=== PATIENT | female | born 1950 | race Caucasian/White ===

== ENCOUNTER 2023-01-19 08:02 | Observation (INO) | payer OTHER ==
[2023-01-14 11:51] LABS: Absolute Lymphocytes (CBC) 2.5 K/uL (0.7-4.9); Hematocrit 36.5 % (36.0-45.0); Lymphocytes % 34.8 % (15.3-44.8); MCV 82.9 fL (80-100); MPV 7.5 fL (7.6-11.3)
[2023-01-14 12:02] LABS: Protime INR 0.91
[2023-01-14 12:05] LABS: Potassium 3.4 mEq/L (3.5-5.1)
--- NOTE | 2023-01-14 12:41 | RAD REPORT ---
EXAM DESCRIPTION: Ramiro Philip (2 Views)01/14/2023 11:27 am CLINICAL HISTORY: Preop for joint surgery COMPARISON: 2018 FINDINGS: Small calcification overlies anterior right chest. The lungs appear clear of acute infiltrate. The heart is normal size IMPRESSION: No acute abnormalities displayed
[2023-01-19] MEDS ORDERED: Ringers Lactate 1,000 ML IV ONE ×2 (08:28→12:06)
[2023-01-19] MEDS ORDERED: CLINDAMYCIN 600MG/D5W 50 ML IV ONE (08:29)
[2023-01-19] MEDS ORDERED: MIDAZOLAM HCL 2 MG/2 ML INJ ONE (09:26)
[2023-01-19] MEDS ORDERED: dexAMETHasone 10 MG/ML VIAL ONE ×2 (09:26→10:29)
[2023-01-19] MEDS ORDERED: EPINEPHRINE/PF 1 MG/ML AMP ONE (09:26)
[2023-01-19] MEDS ORDERED: LIDOCAINE 1% MPF 5 ML VIAL ONE (09:26)
[2023-01-19] MEDS ORDERED: FENTANYL CITR 100 MCG/2 ML ONE (09:26)
[2023-01-19] MEDS ORDERED: propofoL 200 MG/20 ML VIAL IV ONE (10:28)
[2023-01-19] MEDS ORDERED: LIDOCAINE 2% MPF 5 ML VIAL ONE (10:30)
[2023-01-19] MEDS ORDERED: NS 0.9% VIAL 10 ML ONE ×3 (10:30→12:30)
[2023-01-19] MEDS ORDERED: VECURONIUM 10 MG/VIAL IV ONE ×2 (10:30→12:31)
[2023-01-19] MEDS ORDERED: ONDANSETRON 4 MG/2 ML VIAL ONE (10:31)
[2023-01-19] MEDS ORDERED: SUCCINYLCHOLINE 20 MG/ML (10 ML) IV ONE (10:42)
--- NOTE | 2023-01-19 13:47 | P.BOP ---
Preoperative diagnosis: left shoulder osteoarthritis Postoperative diagnosis: same Primary procedure: left total shoulder arthroplasty Prototype Engineer: NONE,NONE Estimated blood loss: 50 cc Specimen: left humeral head Findings: see dictation Anesthesia: General Complications: None Implants: [employer] Allison 13 x 83 mm mini stem, 3 modular glenoid w/ TM post, 46 head Fluids & blood products: per anesthesia record Transferred to: Recovery Room Condition: Good
[2023-01-19] MEDS ORDERED: TRAMADOL HCL 50 MG TAB PO PRN (13:48)
[2023-01-19] MEDS ORDERED: ONDANSETRON 4 MG/2 ML VIAL IV PRN (13:48)
[2023-01-19] MEDS ORDERED: ACETAMINOPHEN 325 MG TABLET PO PRN (13:48)
[2023-01-19] MEDS ORDERED: DOCUSATE NA 100 MG CAP PO PRN (13:48)
--- OUTSIDE RECORDS SUMMARY | 2023-01-19 14:22 | XMS REPORT | Continuity of Care Document ---
:1950 Author Organization [facility] t Address [address] [place] [address] [address] [place] [address] Care Team Providers Name Role Phone Maria C Carr Primary Care Physician [phone] MARIA C NICHOLSON Attending Clinician Unavailable DENTON RICK Attending Clinician Unavailable [place] Rick MD Attending Clinician Doctor Unassigned, [place] Attending Clinician Unavailable Only, Adc Test Attending Clinician Unavailable Pob, [facility] Lab Main Attending Clinician Unavailable Satya Attending Clinician Unavailable Damaso Raza MD Attending Clinician Erica Dimas Attending Clinician ERICA DELUNA Attending Clinician Unavailable DAMASO RAZA Attending Clinician Unavailable DENTON RICK Admitting Clinician Unavailable [place] Rick MD Admitting Clinician Satya Admitting Clinician Unavailable Payers Payer Name Policy Type Policy Number Effective Date Expiration Date S vanessa [facility] [id number] 2021 [facility] 00:00:00 PPO [facility] [id number] (MEDICARE REPLACEMENT/[place] GE - PPO) [facility] [id number] 2013 MEDICARE SUPPLEMENT 00:00:00 [place]IC[place]: [id number] 2013 [id number] 00:00:00 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 Unive rs humerus humerus 1-19 [place] left[place] with left, with 00 Me dical routine routine Branch healing, healing, subsequent subsequent encounter encounter Knee Knee Disease Active 2014-09 Univers fracture, fracture, 109 ity of right right 00:00: [place] 00 Medical Branch Right Right Disease Active 2014-09 Univers tibial tibial 07 ity of fracture fracture 00:00: [place] 00 Medical Branch Bilateral Bilateral Disease Active 2014-09 Uni vers shoulder shoulder 1-04 ity of pain pain 00:00: [place] 00 Medical Branch Left Left Disease Active 2014-09 Univers shoulder shoulder 0-08 ity of pain pain 00:00: [place] 00 Medical Branch Allergies, Adverse Reactions, Alerts Allergy Allergy Status Severity Reaction(s) Onset Inactive Treating Comm ents Source Name Type Date Date Clinician Penicill Propensi Active Rash 2014-09 Univer s ins ty to 0-08 ity of adverse 00:00: [place] reaction 00 Medical s Branch Sulfa Propensi Active Nausea 2014-09 Univers (Sulfona ty to and/or 0-08 ity of mide adverse Vomiting 00:00: [place] Antibiot reaction 00 Medica l ics) s Branch PENICILL Drug Active Rash 2014-09 Univers INS Class 0-08 ity of 00:00: [place] 00 Medical Branch SULFA Drug Active N/V 2014-09 Univers (SULFONA Class 0-08 ity of MIDE 00:00: [place] ANTIBIOT 00 Medical ICS) Branch Social History Social Habit Start Date Stop Date Quantity Comments Source History SDOH University o f Alcohol Frequency [place] M edical [facility] History SDDC University o f Alcohol Std [place] [facility] Drinks Branch History SDDC University o f Alcohol Binge [place] [facility] al Branch Exposure to Not sure University of SARS-CoV-2 [place] Medical (event) Branch Alcohol intake 2021-12-07 2021-12-07 0 /d University of 00:00:00 00:00:00 [facility] Alcohol Comment 2015-07-28 2015-07-28 once or twice Univer sity of 00:00:00 00:00:00 per year, glass [place] Med ical of wine Branch Tobacco use and 2015-06-26 2015-06-26 Never used Universit y of exposure 00:00:00 00:00:00 [facility] Sex [birth year] Universit y of 00:00:00 00:00:00 [facility] Smoking Status Start Date Stop Date Source Never smoker [facility] Medications Ordered Filled Start Stop Current Ordering Indication Dosage Frequency Signature Comments Components Source Medication Medication Date Date Medication? Clinician (SIG) Name Name neomycin-po 0 Yes PRN, Univer s lymyxin-dex 12-09 Starting ity of amethasone 18:57: on Tue [place] (MAXITROL) 00 12/09/21 at [facility] ica 3.5 1357, Branch mg/g-10,000 Until unit/g-0.1 Discontinu % ed, ophthalmic Routine, ointment Intra-op neomycin-po 2021- No PRN, Unive rs lymyxin-dex 12-09 Starting ity of amethasone 18:57: 21:29 [place] ([place]OL[place] 00 :41 12/09/21 at [facility] ica 3. 1357, Branch mg/g-10,000 Until Tue unit/g-0.1 12/09/21 at % 1629, ophthalmic Routine, ointment Intra-op sodium 0 Yes PRN, Univers chloride 12-09 Starting ity of (NS) 18:55: on Tue [place] injection 00 12/09/21 at [facility] 1355, Branch Until Discontinu ed, Routine, Intra-op sodium 2021-0 2021- No PRN, Univers chloride 12-09 Starting ity of (NS) 18:55: 21:29 on Tue [place] injection 00 :41 12/09/21 at [facility] 1355, Branch Until Tue12/09/21 at 1629, Routine, Intra-op dexamethaso 0 Yes PRN, Univer s ne 12-09 Starting ity of (DECADRON 18:53: on Tue [place] PHOSPHATE) 00 12/09/21 at [facility] injection 1353, Branch Until Discontinu ed, Routine, Intra-op ceFAZolin 0 Yes PRN, Univers (ANCEF) 12-09 Starting ity of injection 18:53: on Tue [place] 00 12/09/21 at [facility] 1353, Branch Until Discontinu ed, ELLIS, Intra-op dexamethaso 2021- No PRN, Unive rs ne 12-09 Starting ity of (DECADRON 18:53: 21:29 on Tue [place] PHOSPHATE) 00 :41 12/09/21 at [facility] ical injection 1353, Branch Until Tue12/09/21 at 1629, Routine, Intra-op ceFAZolin 2021- No PRN, Univers (ANCEF) 12-09 Starting ity of injection 18:53: 21:29 on Tue [place] 00 :41 12/09/21 at Medical 1353, Branch Until Tue12/09/21 at 1629, ELLIS, Intra-op carbachoL Yes PRN, Univers (MIOSTAT) 12-09 Starting ity of 0.01 % 18:52: on Tue intraocular 00 12/09/21 at [place] injection 1352, Branch Until Discontinu ed, Routine, Intra-op carbachoL 2021- No PRN, Univers (MIOSTAT) 12-09 Starting ity o f 0.01 % 18:52: 21:29 on Tue intraocular 00 :41 12/09/21 at [place] injection 1352, Branch Until Tue12/09/21 at 1629, Routine, Intra-op EPINEPHrine Yes PRN, Univer s 1:1,000 (1 12-09 Starting ity o f mg/mL) 18:41: on Tue (ADRENALIN) 00 12/09/21 at [place] injection 1341, Branch Until Discontinu ed, Routine, Intra-op DUOVISC Yes PRN, Univers (DUOVISC 12-09 Starting ity of VISCO 18:41: on Tue ELASTIC) 3 00 12/09/21 at [facility] ical %-4 %(0.5 1341, Branch mL) 1 % Until (0.55 mL) Discontinu intraocular ed, injection Routine, Intra-op balanced Yes PRN, Univers salt irrig 12-09 Starting ity o f soln comb1 18:41: on Tue (BSS PLUS) 00 12/09/21 at [facility] ical ophthalmic 1341, Branch solution Until 500 mL bag Discontinu ed, Routine, Intra-op EPINEPHrine 2021- No PRN, Unive rs 1:1,000 (1 12-09 Starting ity of mg/mL) 18:41: 21:29 on Tue [place] (ADRENALIN) 00 :41 12/09/21 at Ny dical injection 1341, Branch Until Tue12/09/21 at 1629, Routine, Intra-op DUOVISC 2021- No PRN, Univers (DUOVISC 12-09 Starting ity of VISCO 18:41: 21:29 on Tue [place] ELASTIC) 3 00 :41 12/09/21 at [facility] ical %-4 %(0.5 1341, Branch mL) 1 % Until Tue (0.55 mL) 12/09/21 at intraocular 1629, injection Routine, Intra-op balanced 2021- No PRN, Univers salt irrig 12-09 Starting ity of soln comb1 18:41: 21:29 [place] Tue [place] (BSS PLUS) 00 :41 12/09/21 at [facility] ical ophthalmic 1341, Branch solution Until Tue 500 mL bag 12/09/21 at 1629, Routine, Intra-op water for Yes PRN, Univers irrigation 12-09 Starting ity o f irrigation 18:37: on Tue solution 00 12/09/21 at Medic al 1337, Branch Until Discontinu ed, Routine, Intra-op water for 2021- No PRN, Univers irrigation 12-09 Starting ity of irrigation 18:37: 21:29 on Tue [place] solution 00 :41 12/09/21 at Medic al 1337, Branch Until Tue12/09/21 at 1629, Routine, Intra-op Hyaluronida Yes PRN, Univer s se, Human 12-09 Starting ity of Recomb. 18:35: on Tue (HYLENEX) 00 12/09/21 at [facility] injection 1335, Branch Until Discontinu ed, Routine, Intra-op eye block Yes PRN, Univers syringe 11 12-09 Starting ity o f mL 18:35: on Tue [place] 00 12/09/21 at Medical 1335, Branch Until Discontinu ed, Intra-op Hyaluronida 2021- No PRN, Unive rs se, Human 3-23 03-23 Starting ity o f Recomb. 18:35: 21:29 on Tue (HYLENEX) 00 :41 12/09/21 at [facility] [place] injection 1335, Branch Until Tue12/09/21 at 1629, Routine, Intra-op eye block 2021- No PRN, Univers syringe 11 12-09 Starting ity of mL 18:35: 21:29 on Tue [place] 00 :41 12/09/21 at [facility] 1335, Branch Until Tue12/09/21 at 1629, Intra-op cyclopent 2021- No .5mL 0.5 mL, Univ ers 1%-tropic 12-09 Left Eye, ity of 1%-phenyl 16:30: 16:37 ONCE, 1 [place] 2.5%-ketor 00 :00 dose, On Medic al 0.5% Tue Branch (MYDRIATIC 12/09/21 at #5) 1130, ophthalmic Routine, solution DSU Pre-op syringe 0.5 mL lactated 2021- No 1000mL at 42 [facility] rs ringers IV 12-09 mL/hr, ity of infusion 16:30: 16:37 1,000 mL, Shahram as 1,000 mL 00 :00 IV Medical Infusion, Branch ONCE, 1 dose, On Tue12/09/21 at 1130, Routine, DSU Pre-op cyclopent 2021- No .5mL 0.5 mL, Univ ers 1%-tropic 12-09 Left Eye, ity of 1%-phenyl 16:30: 16:37 ONCE, 1 [place] 2.5%-ketor 00 :00 dose, On Medic al 0.5% Tue Branch (MYDRIATIC 12/09/21 at #5) 1130, ophthalmic Routine, solution DSU Pre-op syringe 0.5 mL lactated 2021- No 1000mL at 42 [facility] rs ringers IV 12-09 mL/hr, ity of infusion 16:30: 16:37 1,000 mL, Shahram as 1,000 mL 00 :00 IV Medical Infusion, Branch ONCE, 1 dose, On Tue12/09/21 at 1130, Routine, DSU Pre-op NAPROXEN Yes Take by Univer s SODIUM 3- mouth. ity of (ALEVE 14:29: [place] ORAL) 39 Medical Branch letrozole Yes 2.5mg Take 2.5 Uni vers 2.5 mg 3-23 mg by ity of tablet 14:29: mouth [place] 39 daily Medical Branch losartan 0 Yes 100mg Take 100 Univ ers 100 mg 3-23 mg by ity of tablet 14:29: mouth [place] 39 daily. Medical Branch ergocalcife Yes Take by Uni vers rol, 3 mouth. ity of vitamin D2, 14:29: [place] (VITAMIN D 39 Medical ORAL) Branch Cholecalcif Yes Take by Uni vers sam, 12-09 mouth. ity of Vitamin D3, 14:29: [place] (VITAMIN 39 Medical D3) [address] [place] (1,000 unit) capsule vitamin Yes 1000ug Take 1,000 Un aislinn B-12 3-23 mcg by ity of (VITAMIN 14:29: mouth [place] B-12) 1,000 39 daily. Medica l mcg tablet Branch coenzyme Yes 100mg Take 100 Univ ers Q10 (CO 3-23 mg by ity of Q-10) 100 14:29: mouth. [place] mg softgel [address] [place] [address] Branch vit C/vit E Yes Take by Uni vers ac/lut/john 12-09 mouth. ity of er/zinc 14:29: [place] (PRESERVISI 39 Medical ON LUTEIN Branch ORAL) calcium Yes Take by Univers carbonate/v 12-09 mouth. ity of itamin D2 14:29: [place] (CALCIUM-60 39 Medical 0-D ORAL) Branch VITAMIN B Yes Take by Unive rs COMPLEX - mouth. ity of ORAL 14:29: [address] Branch MAGNESIUM Yes 400mg Take 400 Uni vers ORAL 3-23 mg by ity of 14:29: mouth. [address] Branch krill-om-3- Yes Take by Uni vers dha-epa-marzena 12-09 mouth. ity of spho-ast 14:29: [place] (MEGARED 39 Medical OMEGA-3 Branch KRILL OIL) 350-90-24-5 0 mg Cap Biotin 5 mg Yes Take by Uni vers Tab 3 mouth. ity of 14:29: [place] [address] Medical Branch NAPROXEN Yes Take by Univer s SODIUM 12-09 mouth. ity of (ALEVE 14:29: [place] ORAL) 39 Medical Branch letrozole Yes 2.5mg Take 2.5 Uni vers 2.5 mg 3-23 mg by ity of tablet 14:29: mouth [place] 39 daily Medical Branch losartan Yes 100mg Take 100 Univ ers 100 mg 3-23 mg by ity of tablet 14:29: mouth [place] 39 daily. Medical Branch ergocalcife Yes Take by Uni vers rol, 12-09 mouth. ity of vitamin D2, 14:29: [place] (VITAMIN D 39 Medical ORAL) Branch Cholecalcif Yes Take by Uni vers sam, 12-09 mouth. ity of Vitamin D3, 14:29: [place] (VITAMIN [address] [place] [address] D3) [address] [place] (1,000 unit) capsule vitamin Yes 1000ug Take 1,000 Un aislinn B-12 3-23 mcg by ity of (VITAMIN 14:29: mouth [place] B-12) 1,000 39 daily. Medica l mcg tablet Branch coenzyme Yes 100mg Take 100 Univ ers Q10 (CO 3-23 mg by ity of Q-10) 100 14:29: mouth. [place] mg softgel [address] [place] [address] Branch vit C/vit E Yes Take by Uni vers ac/lut/john 12-09 mouth. ity of er/zinc 14:29: [place] (PRESERVISI 39 Medical ON LUTEIN Branch ORAL) calcium Yes Take by Univers carbonate/v 12-09 mouth. ity of itamin D2 14:29: [place] (CALCIUM-60 Medical 0-D ORAL) Branch VITAMIN B Yes Take by Unive rs COMPLEX 12-09 mouth. ity of ORAL 14:29: [address] Branch MAGNESIUM Yes 400mg Take 400 Uni vers ORAL 3-23 mg by ity of 14:29: mouth. [address] Branch krill-om-3- Yes Take by Uni vers dha-epa-marzena 12-09 mouth. ity of spho-ast 14:29: [place] (MEGARED 39 Medical OMEGA-3 Branch KRILL OIL) 350-90-24-5 0 mg Cap Biotin 5 mg Yes Take by Uni vers Tab 12-09 mouth. ity of 14:29: [place] [address] Medical Branch neomycin-po Yes PRN, [facility] lymyxin-dex 11-11 Starting ity of amethasone 19:17: on Wed [place] (MAXITROL) 00 11/11/21 at Med ical 3.5 1317, Branch mg/g-10,000 Until unit/g-0.1 Discontinu % ed, ophthalmic Routine, ointment Intra-op DUOVISC Yes PRN, Univers (DUOVISC 11-11 Starting ity of VISCO 19:17: on Tue [place] ELASTIC) 3 00 11/11/21 at Med ical %-4 %(0.5 1317, Branch mL) 1 % Until (0.55 mL) Discontinu intraocular ed, injection Routine, Intra-op dexamethaso Yes [facility]N, [facility] Starting ity of (DECADRON 19:17: on Tue [place] PHOSPHATE) 00 11/11/21 at Med ical injection 1317, Branch Until Discontinu ed, Routine, Intra-op neomycin-po 2021- No PRN, [facility] lymyxin-dex 11-11 Starting ity of amethasone 19:17: 22:11 on Tue [place] (MAXITROL) 00 :13 11/11/21 at Med ical 3.5 1317, Branch mg/g-10,000 Until Tue unit/g-0.1 11/11/21 at % 1611, ophthalmic Routine, ointment Intra-op DUOVISC 2021- No PRN, Univers (DUOVISC 11-11 Starting ity of VISCO 19:17: 22:11 on Tue [place] ELASTIC) 3 00 :13 11/11/21 at Med ical %-4 %(0.5 1317, Branch mL) 1 % Until Wed (0.55 mL) 11/11/21 at intraocular 1611, injection Routine, Intra-op dexamethaso 2021- No PRN, Unive rs ne 11-11 Starting ity of (DECADRON 19:17: 22:11 on Tue [place] PHOSPHATE) 00 :13 11/11/21 at [facility] ical injection 1317, Branch Until Tue11/11/21 at 1611, Routine, Intra-op ceFAZolin Yes PRN, Univers (ANCEF) 11-11 Starting ity of injection 19:16: on Tue 00 11/11/21 at [facility] 1316, Branch Until Discontinu ed, ELLIS, Intra-op carbachoL Yes PRN, Univers (MIOSTAT) 11-11 Starting ity of 0.01 % 19:16: on Tue intraocular 00 11/11/21 at [place] injection 1316, Branch Until Discontinu ed, Routine, Intra-op ceFAZolin 2021- No PRN, Univers (ANCEF) 11-11 Starting ity of injection 19:16: 22:11 on Tue 00 :13 11/11/21 at [facility] 1316, Branch Until Tue11/11/21 at 1611, ELLIS, Intra-op carbachoL 2021- No PRN, Univers (MIOSTAT) 11-11 Starting ity o f 0.01 % 19:16: 22:11 on Tue [place] intraocular 00 :13 11/11/21 at Ny dical injection 1316, Branch Until Tue11/11/21 at 1611, Routine, Intra-op sodium Yes PRN, Univers chloride 11-11 Starting ity of (NS) 19:15: on Tue [place] injection 00 11/11/21 at [facility] 1315, Branch Until Discontinu ed, Routine, Intra-op sodium 2021- No PRN, Univers chloride 11-11 Starting ity of (NS) 19:15: 22:11 on Tue [place] injection 00 :13 11/11/21 at [facility] 1315, Branch Until Tue11/11/21 at 1611, Routine, Intra-op water for Yes PRN, Univers irrigation 11-11 Starting ity o f irrigation 19:09: on Tue [place] solution 00 11/11/21 at Medic al 1309, Branch Until Discontinu ed, Routine, Intra-op water for 2021- No PRN, Univers irrigation 11-11 Starting ity of irrigation 19:09: 22:11 [place] Tue [place] solution 00 :13 11/11/21 at [facility] 1309, Branch Until Tue11/11/21 at 1611, Routine, Intra-op Hyaluronida Yes PRN, Univer s se, Human 11-11 Starting ity of Recomb. 19:05: on Tue [place] (HYLENEX) 00 11/11/21 at [facility] injection 1305, Branch Until Discontinu ed, Routine, Intra-op Hyaluronida 2021- No PRN, Unive rs se, Human 11-11 Starting ity o f Recomb. 19:05: 22:11 on Tue [place] (HYLENEX) 00 :13 11/11/21 at [facility] injection 1305, Branch Until Tue11/11/21 at 1611, Routine, Intra-op eye block Yes PRN, Univers syringe 11 11-11 Starting ity o f mL 19:03: on Tue [place] 11/11/21 at [facility] 1303, Branch Until Discontinu ed, Intra-op eye block 2021- No PRN, Univers syringe 11 11-11 Starting ity of mL 19:03: 22:11 on Tue [place] 00 :13 11/11/21 at [facility] 1303, Branch Until Tue11/11/21 at 1611, Intra-op EPINEPHrine Yes PRN, Univer s 1:1,000 (1 11-11 Starting ity o f mg/mL) 19:02: on Tue [place] (ADRENALIN) 11/11/21 at Ny dical injection 1302, Branch Until Discontinu ed, Routine, Intra-op balanced Yes PRN, Univers salt irrig 11-11 Starting ity o f soln comb1 19:02: on Tue [place] (BSS PLUS) 11/11/21 at [facility] ical ophthalmic 1302, Branch solution Until 500 mL bag Discontinu ed, Routine, Intra-op EPINEPHrine 2021- No PRN, Unive rs 1:1,000 (1 11-11 Starting ity of mg/mL) 19:02: 22:11 on Tue [place] (ADRENALIN) 00 :13 11/11/21 at Ny dical injection 1302, Branch Until Tue11/11/21 at 1611, Routine, Intra-op balanced 2021- No PRN, Univers salt irrig 11-11 Starting ity of soln comb1 19:02: 22:11 on Tue [place] (BSS PLUS) 00 :13 11/11/21 at [facility] ica ophthalmic 1302, Branch solution Until Tue 500 mL bag 11/11/21 at 1611, Routine, Intra-op cyclopent 2021- No .5mL 0.5 mL, Univ ers 1%-tropic 11-11 Right Eye, ity of 1%-phenyl 16:30: 16:35 ONCE, 1 [place] 2.5%-ketor 00 :00 dose, On Medic al 0.5% Wed Branch (MYDRIATIC 11/11/21 at #5) 1030, ophthalmic Routine, solution DSU Pre-op syringe 0.5 mL lactated 2021- No 1000mL at 42 Unive rs ringers IV 11-11 mL/hr, ity of infusion 16:30: 16:39 1,000 mL, Shahram as 1,000 mL 00 :00 IV Medical Infusion, Branch ONCE, 1 dose, On Tue11/11/21 at 1030, Routine, DSU Pre-op cyclopent 2021- No .5mL 0.5 mL, Univ ers 1%-tropic 11-11 Right Eye, ity of 1%-phenyl 16:30: 16:35 ONCE, 1 [place] 2.5%-ketor 00 :00 dose, On Medic al 0.5% Tue Branch (MYDRIATIC 11/11/21 at #5) 1030, ophthalmic Routine, solution DSU Pre-op syringe 0.5 mL lactated 2021- No 1000mL at 42 Unive rs ringers IV 11-11 mL/hr, ity of infusion 16:30: 16:39 1,000 mL, Shahrma as 1,000 mL 00 :00 IV Medical Infusion, Branch ONCE, 1 dose, On Tue11/11/21 at 1030, Routine, DSU Pre-op NAPROXEN Yes Take by Univer s SODIUM 2-23 mouth. ity of (ALEVE 14:06: [place] ORAL) 07 Medical Branch NAPROXEN Yes Take by Univer s SODIUM 2-23 mouth. ity of (ALEVE 14:06: [place] ORAL) Medical Branch NAPROXEN Yes Take by Univer s SODIUM 2-23 mouth. ity of (ALEVE 14:06: [place] ORAL) 07 Medical Branch NAPROXEN Yes Take by Univer s SODIUM 2-23 mouth. ity of (ALEVE 14:06: [place] ORAL) 07 Medical Branch NAPROXEN Yes Take by Univer s SODIUM 3-28 mouth. ity of (ALEVE 08:51: [place] ORAL) 54 Medical Branch NAPROXEN Yes Take by Univer s SODIUM 3-28 mouth. ity of (ALEVE 08:51: [place] ORAL) 54 Medical Branch NAPROXEN Yes Take by Univer s SODIUM 3-28 mouth. ity of (ALEVE 08:51: [place] ORAL) 54 Medical Branch NAPROXEN Yes Take by Univer s SODIUM 3-28 mouth. ity of (ALEVE 08:51: [place] ORAL) 54 Medical Branch atorvastati Yes Univer s n 40 mg 2-13 ity of tablet 00:00: Medical Branch atorvastati 0 Yes Univer s n 40 mg 2-13 ity of tablet 00:00: Medical Branch atorvastati 0 Yes Univer s n 40 mg 2-13 ity of tablet 00:00: Medical Branch atorvastati 2017-0 Yes Univer s n 40 mg 2-13 ity of tablet 00:00: Medical Branch atorvastati 0 Yes Univer s n 40 mg 2-13 ity of tablet 00:00: Medical Branch atorvastati 0 Yes Univer s n 40 mg 2-13 ity of tablet 00:00: Medical Branch atorvastati 0 Yes Univer s n 40 mg 2-13 ity of tablet 00:00: Medical Branch atorvastati 0 Yes Univer s n 40 mg 2-13 ity of tablet 00:00: Medical Branch atorvastati 2017-0 Yes Univer s n 40 mg 2-13 ity of tablet 00:00: [place] 00 Medical Branch atorvastati 2017-0 Yes Univer s n 40 mg 2-13 ity of tablet 00:00: [place] 00 Medical Branch acetaminoph 2014-09 Yes 1{tbl} Take 1 Tab Univers en-codeine 1-10 by mouth ity o f (TYLENOL 00:00: every 4 [place] #3) 300-30 00 (four) Medical mg tablet hours as Branch needed for Pain (scale 4-6) or Pain (scale 7-10). acetaminoph 2014-09 Yes 1{tbl} Take 1 Tab Univers en-codeine 1-10 by mouth ity o f (TYLENOL 00:00: every 4 [place] #3) 300-30 00 (four) Medical mg tablet hours as Branch needed for Pain (scale 4-6) or Pain (scale 7-10). acetaminoph 2014-09 Yes 1{tbl} Take 1 Tab Univers en-codeine 1-10 by mouth ity o f (TYLENOL 00:00: every 4 [place] #3) 300-30 00 (four) Medical mg tablet hours as Branch needed for Pain (scale 4-6) or Pain (scale 7-10). acetaminoph 2014-09 Yes 1{tbl} Take 1 Tab Univers en-codeine 1-10 by mouth ity o f (TYLENOL 00:00: every 4 [place] #3) 300-30 00 (four) Medical mg tablet hours as Branch needed for Pain (scale 4-6) or Pain (scale 7-10). acetaminoph 2014-09 Yes 1{tbl} Take 1 Tab Univers en-codeine 1-10 by mouth ity o f (TYLENOL 00:00: every 4 [place] #3) 300-30 00 (four) Medical mg tablet hours as Branch needed for Pain (scale 4-6) or Pain (scale 7-10). acetaminoph 2014-09 Yes 1{tbl} Take 1 Tab Univers en-codeine 1-10 by mouth ity o f (TYLENOL 00:00: every 4 [place] #3) 300-30 00 (four) Medical mg tablet hours as Branch needed for Pain (scale 4-6) or Pain (scale 7-10). acetaminoph 2014-09 Yes 1{tbl} Take 1 Tab Univers en-codeine 1-10 by mouth ity o f (TYLENOL 00:00: every 4 [place] #3) 300-30 00 (four) Medical mg tablet hours as Branch needed for Pain (scale 4-6) or Pain (scale 7-10). acetaminoph 2014-09 Yes 1{tbl} Take 1 Tab Univers en-codeine 1-10 by mouth ity o f (TYLENOL 00:00: every 4 [place] #3) 300-30 00 (four) Medical mg tablet hours as Branch needed for Pain (scale 4-6) or Pain (scale 7-10). acetaminoph 2014-09 Yes 1{tbl} Take 1 Tab Univers en-codeine 1-10 by mouth ity o f (TYLENOL 00:00: every 4 [place] #3) 300-30 00 (four) Medical mg tablet hours as Branch needed for Pain (scale 4-6) or Pain (scale 7-10). acetaminoph 2014-09 Yes 1{tbl} Take 1 Tab Univers en-codeine 1-10 by mouth ity o f (TYLENOL 00:00: every 4 [place] #3) 300-30 00 (four) Medical mg tablet hours as Branch needed for Pain (scale 4-6) or Pain (scale 7-10). metFORMIN Yes Univers (GLUCOPHAGE 9-23 ity of ) 500 mg 00:00: [place] tablet 00 Medical Branch levothyroxi Yes [place] ne 06-11 ity of (SYNTHROID) 00:00: [place] 75 mcg 00 Medical tablet Branch metFORMIN Yes Univers (GLUCOPHAGE 9-23 ity of ) 500 mg 00:00: [place] tablet 00 Medical Branch levothyroxi Yes Univer s ne -23 ity of (SYNTHROID) 00:00: [place] 75 mcg 00 Medical tablet Branch metFORMIN Yes Univers (GLUCOPHAGE 9-23 ity of ) 500 mg 00:00: [place] tablet 00 Medical Branch levothyroxi Yes [place] ne - ity of (SYNTHROID) 00:00: [place] 75 mcg 00 Medical tablet Branch metFORMIN Yes Univers (GLUCOPHAGE 9-23 ity of ) 500 mg 00:00: [place] tablet 00 Medical Branch levothyroxi Yes [place] al[place] ne 9-23 ity of (SYNTHROID) 00:00: [place] 75 mcg 00 Medical tablet Branch metFORMIN Yes Univers (GLUCOPHAGE 9-23 ity of ) 500 mg 00:00: [place] tablet 00 Medical Branch levothyroxi Yes [place] ne 9-23 ity of (SYNTHROID) 00:00: [place] 75 mcg 00 Medical tablet Branch metFORMIN Yes Univers (GLUCOPHAGE 9-23 ity of ) 500 mg 00:00: [place] tablet 00 Medical Branch levothyroxi Yes [place] ne 9-23 ity of (SYNTHROID) 00:00: [place] 75 mcg 00 Medical tablet Branch metFORMIN Yes Univers (GLUCOPHAGE 9-23 ity of ) 500 mg 00:00: [place] tablet 00 Medical Branch levothyroxi Yes [place] ne 9- ity of (SYNTHROID) 00:00: [place] 75 mcg 00 Medical tablet Branch metFORMIN Yes Univers (GLUCOPHAGE 9-23 ity of ) 500 mg 00:00: [place] tablet 00 Medical Branch levothyroxi Yes [place] ne - ity of (SYNTHROID) 00:00: [place] 75 mcg 00 Medical tablet Branch metFORMIN Yes Univers (GLUCOPHAGE 9-23 ity of ) 500 mg 00:00: [place] tablet 00 Medical Branch levothyroxi Yes [place] al[place] ne 9-23 ity of (SYNTHROID) 00:00: [place] 75 mcg 00 Medical tablet Branch metFORMIN Yes Univers (GLUCOPHAGE 9-23 ity of ) 500 mg 00:00: [place] tablet 00 Medical Branch levothyroxi Yes Marine alvarez ne 9-23 ity of (SYNTHROID) 00:00: [place] 75 mcg 00 Medical tablet Branch losartan-hy Yes Marine alvarez drochloroth 7-23 ity of iazide 00:00: [place] (HYZAAR) 00 Medical 100-12.5 mg Branch per tablet losartan-hy Yes Marine alvarez drochloroth 7-23 ity of iazide 00:00: [place] (HYZAAR) 00 Medical 100-12.5 mg Branch per tablet losartan-hy Yes Marine alvarez drochloroth 7-23 ity of iazide 00:00: [place] (HYZAAR) 00 Medical 100-12.5 mg Branch per tablet losartan-hy Yes Univer s drochloroth 7-23 ity of iazide 00:00: [place] (HYZAAR) 00 Medical 100-12.5 mg Branch per tablet losartan-hy Yes Univer s drochloroth 7-23 ity of iazide 00:00: [place] (HYZAAR) 00 Medical 100-12.5 mg Branch per tablet losartan-hy Yes Univer s drochloroth 7-23 ity of iazide 00:00: [place] (HYZAAR) 00 Medical 100-12.5 mg Branch per tablet losartan-hy Yes Univer s drochloroth 7-23 ity of iazide 00:00: [place] (HYZAAR) 00 Medical 100-12.5 mg Branch per tablet losartan-hy Yes Univer s drochloroth 7-23 ity of iazide 00:00: [place] (HYZAAR) 00 Medical 100-12.5 mg Branch per tablet losartan-hy Yes Univer s drochloroth 7-23 ity of iazide 00:00: [place] (HYZAAR) 00 Medical 100-12.5 mg Branch per tablet losartan-hy Yes Univer s drochloroth 7-23 ity of iazide 00:00: [place] (HYZAAR) 00 Medical 100-12.5 mg Branch per tablet Immunizations Ordered Filled Immunization Date Status Comments [facility] e Immunization Name Name SARS-COV-2 COVID-19 2021-08-06 Completed Unive rsity of MODERNA VACCINE 00:00:00 [facility] ical Branch SARS-COV-2 COVID-19 2021-08-06 Completed Unive rsity of MODERNA VACCINE 00:00:00 [facility] ical Branch Vital Signs Vital Name Observation Time Observation Value Comments Source Heart rate 2021-12-09 19:21:00 75 /min [facility] Respiratory rate 2021-12-09 19:21:00 14 /min [facility] O[facility] saturation in 2021-12-09 19:21:00 99 /min [facility] Arterial blood by [facility] Pulse oximetry Branch Systolic blood 2021-12-09 19:20:00 165 mm[Hg] Univer sity of pressure [place] [facility] Diastolic blood 2021-12-09 19:20:00 73 mm[Hg] Unive rsity of pressure [place] [facility] Body temperature 2021-12-09 19:04:00 36.78 Pham Univ ersity of [place] [facility] Body height 2021-11-25 16:52:00 162.6 cm [facility]i [facility] [place] [facility] Body weight 2021-11-25 16:52:00 86.4 kg [facility] [place] [facility] BMI 2021-11-25 16:52:00 32.68 kg/m2 [facility] [place] [facility] Systolic blood 2021-12-09 16:25:00 167 mm[Hg] Univer sity of pressure [place] [facility] Diastolic blood 2021-12-09 16:25:00 69 mm[Hg] Unive rsity of pressure [facility] Heart rate 2021-12-09 16:25:00 73 /min [facility] [place] [facility] Body temperature 2021-12-09 16:25:00 36.78 Pham Univ ersity of [place] [facility] Respiratory rate 2021-12-09 16:25:00 15 /min Univ ersity of [place] [facility] Oxygen saturation in 2021-12-09 16:25:00 100 /min University of Arterial blood by [place] [employer] [facility] Pulse oximetry Branch Body height 2021-11-25 16:52:00 162.6 cm Universi [facility] [place] [facility] Body weight 2021-11-25 16:52:00 86.4 kg [facility]i [facility] [place] [facility] BMI 2021-11-25 16:52:00 32.68 kg/m2 [facility] [place] [facility] Respiratory rate 2021-11-11 19:48:00 21 /min Univ ersity of [place] [facility] Heart rate 2021-11-11 19:46:00 78 /min [facility] [place] [facility] Oxygen saturation in 2021-11-11 19:46:00 99 /min University of Arterial blood by [place] [employer] [facility] Pulse oximetry Branch Systolic blood 2021-11-11 19:42:00 161 mm[Hg] Univer sity of pressure [place] [facility] Diastolic blood 2021-11-11 19:42:00 72 mm[Hg] Unive rsity of pressure [place] [facility] Body temperature 2021-11-11 19:32:00 36.39 Pham Univ ersity of [facility] Body height 2021-10-28 20:17:00 162.6 cm Universi ty of [facility] Body weight 2021-10-28 20:17:00 86.4 kg Universi ty of [facility] BMI 2021-10-28 20:17:00 32.68 kg/m2 Universi ty of [facility] Systolic blood 2021-11-11 16:31:00 176 mm[Hg] Univer sity of pressure [facility] Diastolic blood 2021-11-11 16:31:00 86 mm[Hg] Unive rsity of [facility] Heart rate 2021-11-11 16:31:00 77 /min Universi ty of [facility] Body temperature 2021-11-11 16:31:00 36.33 Pham [facility] Respiratory rate 2021-11-11 16:31:00 19 /min [facility] Oxygen saturation in 2021-11-11 16:31:00 100 /min [facility] Arterial blood by [facility] Pulse oximetry Branch Body height 2021-10-28 20:17:00 162.6 cm Universi ty of [facility] Body weight 2021-10-28 20:17:00 86.4 kg Universi ty of [facility] BMI 2021-10-28 20:17:00 32.68 kg/m2 Universi ty of [facility] Systolic blood 2021-07-08 19:25:00 149 mm[Hg] Univer sity of [facility] Diastolic blood 2021-07-08 19:25:00 81 mm[Hg] Unive rsity of [facility] Heart rate 2021-07-08 19:25:00 87 /min Universi ty of [facility] Body height 2021-07-08 19:25:00 162.6 cm Universi ty of [facility] Body weight 2021-07-08 19:25:00 86.41 kg Universi ty of [facility] BMI 2021-07-08 19:25:00 32.70 kg/m2 Universi ty of [facility] Procedures Procedure Date / Time Performing Source Performed Clinician PHACOEMULSIFICATION OF 2021-12-09 [place] Rick [facility] CATARACT WITH INTRAOCULAR 18:25:00 Medica l Branch LENS IMPLANT POCT GLUCOSE (AUTOMATED) 2021-12-09 [place] Rick [facility] 16:32:00 Medical Branch POCT GLUCOSE (AUTOMATED) 2021-12-09 [place] Rick [facility] 16:32:00 Medical Branch ASSIGNMENT OF BENEFITS 2021-12-07 Doctor Unassigned, [facility] 14:30:14 [place] [facility] PHACOEMULSIFICATION OF 2021-11-11 [place] Rick [facility] CATARACT WITH INTRAOCULAR 18:54:00 Medica l Branch LENS IMPLANT POCT GLUCOSE(AGE >30DAYS) 2021-11-11 Campos Ye [facility] 16:38:00 Medical Branch POCT GLUCOSE(AGE >30DAYS) 2021-11-[address] [facility] 16:38:00 [facility] ASSIGNMENT OF BENEFITS 2021-11-06 Doctor Unassigned, [facility] 17:05:22 [place] [facility] Encounters Start End Encounter Admission Attending Care Care Encounter Source Date/Time Date/Time Type Type Clinicians Facility Department ID 2022-10-21 Outpatient NICHOLSON, STLMLC [facility] [id number] Common 13:29:01 MARIA C [id number] [facility] 2022-07-19 Outpatient NICHOLSON, STLMLC [facility] [id number] Common 15:57:03 MARIA C [id number] [facility] 2021-10-14 Outpatient STLC [facility] [id number] Common 14:32:53 [facility] 2021-12-09 2021-12-09 Outpatient R JOSE MNALEXANDREA OPH [id number] Univers 11:16:00 14:29:00 DENTON beal [facility] 2021-12-09 2021-12-09 Hospital Jose MNALEXANDREA [id number] Univers 11:16:00 14:29:00 Encounter Denton BATES [id number] lian [facility] [id number] [place] [id number] Med [facility] CENTER 071 Branch 2021-12-09 2021-12-09 Surgery Jose [facility] [id number] Univers 12:43:00 13:21:00 [place] Samuel PAULO [id number] ity of [id number] [id number] [facility] 020 Branch 2021-12-07 2021-12-07 Orders Doctor JESSICA [id number] Univers 00:00:00 00:00:00 Only Unassigned, TONE [id number] ity of [place] [facility] [id number] Shahram as [id number] [facility] 009 Branch 2021-11-11 2021-11-11 Hospital [facility] [id number] Univers 10:25:00 13:56:00 Encounter [place] Samuel PAULO 350.1.13.10 [place] [id number] [facility] 071 Branch 2021-11-11 2021-11-11 [facility] [id number] Univers 10:25:00 13:56:00 [facility] 2021-11-11 2021-11-11 Surgery [facility] [id number] Univers 12:18:00 12:59:00 [place] BATES [id number] ity [id number] [id number] [facility] 020 Branch 2021-11-09 2021-11-09 Laboratory Only, Adc Test [facility] [id number]. [id number] Univers 14:15:00 14:30:00 Only JoseDenton 350.1.13.1 0 [facility]y 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 Lab Main [facility] [id number] Univers 15:15:00 15:30:00 Visit [place] Rick 350.1.13.1 0 ity of [place].2.[place] [id number] Ny dante DARWIN [address] [employer] 2021-11-06 2021-11-06 [facility] [id number] Univers 15:15:00 15:15:00 DENTON ity [facility] 2021-11-06 2021-11-06 Orders Doctor JESSICA [id number] Univers 00:00:00 00:00:00 Only Unassigned, TONE [id number] ity of [place] [facility] 4.2.7.2.686 Shahram as [id number] [address] 2021-07-13 2021-07-13 Outpatient Young_J [facility] [id number] [place] 03:31:00 03:31:00 1025 Medical [facility] 2021-07-13 2021-07-13 Outpatient Young_J [facility] [id number] [place] 03:31:00 03:31:00 1028 Medical Group 2021-07-10 2021-07-10 Telephone [facility] [id number] Univers 00:00:00 00:00:00 Damaso L Health [id number] it y of [place] 4.2.7.2.686 Shharam as Francisco?Blea [id number] [place] markervin ryanalexander [address] [facility] 2021-07-08 2021-07-08 [facility] [id number] Univers 13:50:00 23:59:00 Encounter Erica S Health [id number] ity of [place] 4.2.7.2.686 Shahram as Francisco?Blea [id number] Ny dicervin ryanalexander 809 [facility] Office [facility] 2021-07-08 2021-07-08 Outpatient [facility] [id number] Univers 13:50:00 23:59:00 ERICA ity of [facility] 2021-07-08 2021-07-08 [facility] [id number] Univers 13:37:19 15:49:02 [facility] [id number] it y of [place] 4.2.7.2.686 Shahram as FRANCISCO?BLEA [id number] [address] MEDICAL OFFICE BUILDING 2021-07-08 2021-07-08 Outpatient Efraín [facility] [id number] Univers 14:00:00 14:00:00 [facility] 2021-07-08 2021-07-08 Orders Doctor JESSICA [id number] Univers 00:00:00 00:00:00 Only Unassigned, TONE 350.1.13.10 ity of [place] [facility] [id number] Shahram as [id number] [address] 2016-12-25 2016-12-25 Outpatient Young_J [facility] [id number] [place] 11:04:00 11:04:00 1111 Medical [facility] 2016-12-25 2016-12-25 Outpatient ZakJ [facility] [id number] [place] 11:04:00 11:04:00 1022 Medical [facility] 2015-05-20 2015-05-20 Outpatient Efraín [facility] [id number] Univers 08:45:00 11:01:07 [facility] Results Test Description Test Time Test Comments Results Result Comments Source POCT GLUCOSE (AUTOMATED) 2021-12-09 16:39:26 Test Item Value Reference Range Interpretation Comme nts POCT GLU (test code = 1220492251) 100 mg/dL 70-110 Lab Interpretation (test code = 84134-4) Normal [facility] GLUCOSE (AUTOMATED)2021-12-09 16:39:26 Test Item Value Reference Range Interpretation Comments POCT GLU (test code = 2594008006) 100 mg/dL 70-110 Lab Interpretation (test code = Normal 32238-3) [facility] [id number] 16:38:00 Test Item Value Reference Range Interpretation Comments POCT Glu (age>30days) (test code = 97 mg/dL 70-110 3342) [id number] 16:38:00 Test Item Value Reference Range Interpretation Comments POCT Glu (age>30days) (test code = 97 mg/dL 70-110 1342) [facility]
--- NOTE | 2023-01-19 14:58 | RAD REPORT ---
EXAM DESCRIPTION: RAD - Shoulder 1 View - 01/19/2023 2:34 pm CLINICAL HISTORY: shoulder surgery FINDINGS: Frontal view of the shoulder was obtained. No fracture or dislocation is seen. Left should er arthroplasty has been performed Prosthesis is in good position
[2023-01-19 15:05] VITALS: BMI 31.9
[2023-01-19] MEDS: CLINDAMYCIN 600MG/D5W 50 ML IV SCH (16:12)
[2023-01-19] MEDS ORDERED: ATORVASTATIN 40 MG TAB PO SCH (21:00)
[2023-01-19] MEDS: HYDROCODONE/APAP 7.5/325 MG TAB PO PRN (21:07)
[2023-01-19 23:07] VITALS: O2SAT 95
[2023-01-20] MEDS: CLINDAMYCIN 600MG/D5W 50 ML IV SCH ×2 (01:10→08:53)
[2023-01-20] MEDS: HYDROCODONE/APAP 7.5/325 MG TAB PO PRN ×2 (01:41→05:46)
[2023-01-20 03:51] LABS: Hematocrit 29.8 % (36.0-45.0)
[2023-01-20] MEDS ORDERED: LEVOTHYROXINE SOD 0.075 MG TAB PO SCH (06:00)
[2023-01-20 08:53] VITALS: BP 125/59; TEMP 98.1
[2023-01-20] MEDS ORDERED: HOME MED 1 EA UNK (Losartan/Hydrochlorothiazide [Losartan-Hctz 100-12.5 Mg Tab] 1 EACH Tab PO SCH (09:00)
[2023-01-20] MEDS ORDERED: VITAMIN D 1000 UNIT TAB PO SCH (09:00)
[2023-01-20] MEDS ORDERED: LETROZOLE 2.5 MG TAB PO SCH (09:00)
[2023-01-20] MEDS ORDERED: MAGNESIUM OXIDE 400 MG TAB PO SCH (09:00)
[2023-01-20] MEDS ORDERED: HOME MED 1 EA UNK (Hydrochlorothiazide [Hydrochlorothiazide] 12.5 MG Tablet) PO SCH (09:00)
[2023-01-20] MEDS ORDERED: hydroCHLOROthiazide 12.5 MG CAP PO SCH (09:00)
[2023-01-20] MEDS ORDERED: LOSARTAN POTASSIUM 50 MG TABLET PO SCH (09:00)
--- NOTE | 2023-01-20 14:26 | P.OP ---
Preoperative diagnosis: left shoulder osteoarthritis Postoperative diagnosis: same Primary procedure: left total shoulder arthroplasty Anesthesia: general Estimated blood loss: 50 cc Specimen: left humeral head Findings: see dictation Operative Technique: Indication For Procedure: Fernanda is a 72-year-old female who presented to my clinic with signs, symptoms and x-ray findings consistent with severe left shoulder osteoarthritis. Patient failed conservative treatment measures including home exercise program as well as corticosteroid injections. Her pain affected her activities of daily living. I discussed with the patient risks and benefits associated with operative and nonoperative treatment. She expressed understanding and elected to proceed with operative treatment. Description Of Procedure: After informed consent was obtained, the patient was identified in the preoperative holding area. The left upper extremity was marked. The patient was then taken back to the PACU and underwent an interscalene block to her left upper extremity performed by Anesthesia. She was then transferred to the operating table in a supine fashion and placed under general endotracheal anesthesia. She was placed in the beach chair position with her extremities well padded. The left upper extremity was then prepped and draped in the usual sterile fashion. A time-out was initiated. The correct patient and procedure were confirmed and identified. The patient did receive preoperative prophylactic antibiotics. Ativan was placed over the left shoulder. Approximately a 12 cm incision was made to the left shoulder using a deltopectoral approach, centered just proximal to the medial aspect of the arm. Dissection was then taken to the fascia. The cephalic vein was identified and was marked in the interval. The cephalic vein was gently retracted laterally. A Kolbel retractor was then placed, protecting the deltoid as well as pec, retracting the pec medially and the deltoid laterally. It was placed just deep to the coracoid and the conjoined tendon protecting the musculocutaneous nerve. The axillary nerve was also identified and protected throughout the case. The subscapularis was identified. At the base of the subscapularis, 3 blood vessels were tied and cauterized using Bovie electrocautery. Just medial to the lesser tuberosity, the subscapularis was transected. Medial aspect to the tendon was then tagged using #5 Ethibond sutures from superior to inferior. The subscapularis was then gently retracted medially. The capsule was then released off the proximal humerus to the level of the humeral neck near the 6 o'clock position. A large osteophyte of the undersurface of the humeral neck was then removed using an osteotome and rongeurs. A Hohmann retractor was then placed gently behind the humeral head and the humeral head was then dislocated by extending the shoulder as well as externally rotating it. The rotator cuff was found to be intact. Entry reamer was then placed down the proximal humerus in a sequential fashion, a size 10 mm reamer was placed. Once it was placed in a proper depth and there was good overall fit, the cutting guide was then placed on the reamer where 30 degrees of retroversion was marked and the cutting jig was placed over the reamer and pinned into position on the humeral head. The cut was made just superior to the rotator cuff insertion. Once pinned into position and a proper version was marked, a saw was then used to cut the humeral head. The cut humeral head segment was sent to the back table and measured and a size 46 x 21 mm head was selected. The proximal humerus was then broached in 1 mm increments from a size 7 mm broach to a size 13 mm broach with good overall fit. A cap was then placed in the proximal humerus and then gently retracted. Batman and Heriberto retractors were then placed and a Hohmann retractor was placed in the superior aspect of the glenoid. Labrum was then excised and there was a capsule release anterior, posteriorly, inferiorly and superiorly for to adequate exposure to the glenoid. Once the glenoid was exposed properly, a pin was placed in the central position. The glenoid surface was then reamed to debride off the cartilage surface to near bleeding bony bed. Central peg was then was then drilled over the central guide pin and the glenoid was prepared. The wound was then irrigated thoroughly with normal saline. A small glenoid was selected. The cement was prepared on the back table and placed within the 3 peripheral pecs and the central peg was left clean given the porous coating of the glenoid implant. Final glenoid implant was then placed andheld into position until the cement was completely hard. The final size 13 mm mini stem was then placed up to the proximal humerus. It was then ir rigated. There was good overall fit. It was then trialed using a using a 46 x 21 mm head. There was good overall fit and range of motion with the selective head. A final 46 x 21 head was then placed and knocked into position. The shoulder was again reduced at full range of motion with good overall stability noted. The subscapularis was then repaired using #5 Ethibond sutures, which had bent prior, marked as well as reinforced with #1 Vicryl. There was good overall external rotation with maintenance of repair. Next, the retractors were then removed and superficial fascia was approximated using a 0 Vicryl, subcutaneous tissue was approximated using a 2-0 Vicryl, skin was approximated using mohan. Sterile dressings were applied. The patient was placed in a shoulder immobilizer, awakened, and transferred to the PACU in stable condition. Postoperative Plan: She will be admitted to the hospital overnight for observation. Physical Therapy will be consulted to get the patient up and moving around. She will be discharged in the morning after pain is controlled. Complications: None Implants: Biomet Allison Fluids & blood products: per anesthesia record Transferred to: Recovery Room Condition: Good
== END 2023-01-20 13:53 | disposition home or self-care (01) ==
LOC: OR 08:02 → 2ND 14:19
PROVIDERS: ADMIT Orthopaedic Surgery Sports Medicine; ATTEND Orthopaedic Surgery Sports Medicine
PROC: 0RRK0JZ Replacement of Left Shoulder Joint with Synthetic Substitute, Open Approach (ICD-10-PCS; principal; 2023-01-19 10:45)
DX: M19.012 Primary osteoarthritis, left shoulder (principal)
CPT/HCPCS: 85025; 80048; 36415 ×2; 85610; 88305; 88311; 85730; 85018 ×2; 85014 ×2; 71046; 73020; 97116; 97161; 97530; 94010; 23472; A4216 ×3; J2704; J0171; J2001 ×2; J2250; J3010; J1100 ×2; J2405; J7120 ×2; G0378